=== PATIENT | female | born 1995 | race Caucasian/White ===

== ENCOUNTER 2018-12-17 01:07 | Observation (INO) | payer MEDICAID ==
[~2018-12-17] VITALS: Ht 170.2 cm; Wt 55.0 kg
[2018-12-17] MEDS ORDERED: PRENAVITE1 TAB (01:16)
[2018-12-17] MEDS ORDERED: TUMS X-STR300 MG (01:16)
[2018-12-17 01:44] LABS: HEMATOCRIT 33.4 % (36.0-48.0); HEMOGLOBIN 12.2 g/dL (12-16); LYMPHOCYTES 19.6 % (15-50); MCH 34.7 pg (26.0-34.0); MCHC 36.5 g/dL (31.0-37.0); MCV 94.9 fL (80.0-100.0); MEAN PLATELET VOLUME 9.8 fL (7.4-10.4); NEUTROPHILS 73.4 % (40-80); PLATELET COUNT 149 10x3/uL (130-400); RBC 3.52 10x6/uL (4.00-5.40); RDW 12.2 % (11.5-14.5); WBC 13.6 10x3/uL (4.8-10.8)
[2018-12-17 01:57] LABS: HCG SERUM POSITIVE (NEGATIVE)
--- NOTE | 2018-12-17 01:57 | NUR ---
BRYN MCNAMARA PERFORMED PELVIC EXAM ON PT. ELIZABETH ZIMMERMAN AND PT SPOUSE AT PT BEDSIDE. PT TOLERATED EXAM WELL. BLOOD CLOTS NOTED.
[2018-12-17 01:59] LABS: APPEARANCE CLOUDY (CLEAR); BACTERIA NONE SEEN /hpf (NONE SEEN); BILIRUBIN NEGATIVE (NEGATIVE); COLOR PINK (YELLOW); EPITHELIAL CELLS NSEEN /hpf (0-5); GLUCOSE NEGATIVE (NEGATIVE); KETONE NEGATIVE (NEGATIVE); NITRITE NEGATIVE (NEGATIVE); PROTEIN TRACE mg/dL (NEGATIVE); RED CELLS - URINE >50 /hpf (0-5); UROBILINOGEN NORMAL (NORMAL); WHITE CELLS - URINE NSEEN /hpf (0-5)
[2018-12-17 02:05] LABS: ALBUMIN 3.6 g/dL (3.4-5.0); ALKALINE PHOSPHATASE 59 U/L (46-116); ALT (SGPT) 17 U/L (10-68); BILIRUBIN - TOTAL 1.56 mg/dL (0.2-1.3); CALC OSMOLALITY 279 mosm/kg (275-300); CALCIUM 8.5 mg/dL (8.5-10.1); CARBON DIOXIDE 25.9 mmol/L (21.0-32.0); CHLORIDE - SERUM 103 mmol/L (98-107); CREATININE - SERUM 0.7 mg/dL (0.6-1.3); GLUCOSE 116 mg/dL (74-106); POTASSIUM - SERUM 3.6 mmol/L (3.5-5.1); PROTEIN - SERUM 6.7 g/dL (6.4-8.2); SODIUM 140 mmol/L (136-145); UREA NITROGEN 12 mg/dL (7-18); eGFR NON AFRICAN AMERICAN > 90 mL/min (90-120)
--- NOTE | 2018-12-17 02:32 | NUR ---
PT C/O INCREASE IN LOWER ABD PAIN. PT REPORTS PAIN IS CRAMPING AND SHARP IN SENSATION. EDP ANDERS NOTIFIED.
--- NOTE | 2018-12-17 03:11 | NUR ---
PT REPORTS DECREASE IN PAIN AFTER RECEIVING IV FENTANYL ORDERED. PT FAMILY AT BEDSIDE.
--- NOTE | 2018-12-17 03:47 | NUR ---
PT LEFT ED VIA WC FOR US.
--- NOTE | 2018-12-17 04:30 | NUR ---
PT RETURNED FROM US VIA .
--- NOTE | 2018-12-17 05:04 | NUR ---
PT RATES PAIN 5/10 AT THIS TIME. EDP NOTIFIED.
--- NOTE | 2018-12-17 05:22 | NUR ---
DR CHU AT PT BEDSIDE.
--- NOTE | 2018-12-17 06:02 | NUR ---
PT REC'D TO LABOR AND DELIVERY VIA WHEELCHAIR FROM ER. PT TO BED. VSS. LUNGS CLEAR. BS+. SALINE LOCK TO THE RT AC. SITE CLEAR. PATIENT COMPLAINS OF PAIN AT 1-2 INITIALLY BUT DURING ASSESSMENT STATES THAT POAIN INCREASES TO 3. MODERATE VAGINAL BLEEDING NOTED AT THIS TIME. PT ORIENTED TO ROOM AND CALL LIGHT. S/O AT BEDSIDE AND SUPPORTIVE. NO ACUTE DISTRESS NOTED AT THIS TIME. SIDERAILS UP FOR SAFETY X2. CALL LIGHT IN PT REACH. Len BAH RN
[2018-12-17 06:32] VITALS: BP 114/60; Ht 170.2 cm; Wt 55.0 kg
--- NOTE | 2018-12-17 07:13 | NUR ---
ASSUME CARE OF THIS PATIENT. LAYING IN BED. ALERT AND ORIENTED. NO ACUTE DISTRESS NOTED. SOME LOWER ABD CRAMPING 3-4/10. ASKED ABOUT USING AN ICE PACK. CURRENTLY NO ORDERS. SIDERAILS UP X 2, CALL LIGHT IN REACH.
--- NOTE | 2018-12-17 07:15 | NUR ---
DR CHU CALLED L&D AND ASKED IF PATIENT HAD BEEN ADMITTED TO L&D. INFORMED MD THAT PATIENT IS HERE. HE ASKED IF SHE DECIDED WHAT SHE WANTS TO DO. WILL CALL MD BACK AFTER ASKING PATIENT.
--- NOTE | 2018-12-17 07:25 | NUR ---
PATIENT SAYS HER PAIN IS 3-4/10. INFORMED PATIENT THAT DR CHU WOULD LIKE TO KNOW WHAT SHE HAS DECIDED TO DO. SHE VERBALIZED WHAT HE DISCUSSED WITH HER INCLUDING SURGERY TO LOOK OR POSSIBLE REMOVE TUBE OR METHYLTREXATE. STATES "RIGHT NOW I JUST WANT TO KNOW WHAT'S GOING ON" ASKED PATIENT IF THAT MEANS SHE WANTS HIM TO DO THE LAPAROSCOPY TO LOOK. SHE SAID YES. DR CHU NOTIFIED. ORDERS RECEIVED TO CONSENT PATIENT AND START NS. MD WANTS TO CONTINUE TO MONITOR PAIN, NO PAIN MEDS ORDERED. PT HAS BEEN NPO SINCE APPROX 1400 YESTERDAY. BLOOD TYPE 0+, INFORMED.
--- NOTE | 2018-12-17 07:32 | NUR ---
NUCLEAR MEDICINE SUPERVISOR NOTIFIED THAT MD PLANS LAPAROSCOPY FOR THIS PATIENT. CURRENTLY ANESTHESIA IN OR AND WILL BE AVAILABLE AFTER 0930 CLOSE TO 1000.
--- NOTE | 2018-12-17 07:35 | NUR ---
DR CHU NOTIFIED OF SITUATION IN OR. INFORMED IF HE WANTS TO DO NOW THEN SECOND PROVIDER WILL BE CALLED IN OR HE HAS OPTION TO DO AT 1000. SAYS 1000 IS OK. ROCK WOOL INSULATOR NOTIFIED.
--- NOTE | 2018-12-17 07:45 | NUR ---
CONSENTS OBTAINED FROM PATIENT FOR SURGERY, ANESTHESIA AND BLOOD TRANSFUSION AFTER DISCUSSING PURPOSE OF EACH CONSENT. NO DISTRESS NOTED. SMILING, PERIODS OF LAUGHTER. VISITOR SLEEPING ON COUCH. PT UP TO BATHROOM TO CHANGE OUT OF CLOTHES. SMALL EARRING REMOVED, PLACED IN STERILE CUP AND PLACED IN PT CLOTHING BAG. CLEAN MONICA-PAD ON. SMALL VAGINAL BLEEDING.
[2018-12-17 07:47] VITALS: BP 101/57
--- NOTE | 2018-12-17 07:47 | NUR ---
SHIFT ASSESSMENT COMPLETED. SMOKER, LAST ATE APPROX 1400 YESTERDAY, TAKES PNV, TYLENOL AND CHEWABLE TUMS PRN AT HOME. NO ACUTE DISTRESS NOTED. ENCOURAGED TO REST QUIETLY, INFORMED THAT SURGERY WILL BE AT APPROX 1000 THIS MORNING. CALL LIGHT IN REACH. TO CALL IF ANYTHING IS NEEDED. EXPLAINED TO PT WHY MD HAS NOT ORDERED FURTHER PAIN MEDICATION. STATES "I GUESS I WILL BE AWAKE ALL MORNING". NPO.
--- NOTE | 2018-12-17 09:01 | NUR ---
UP TO BATHROOM TO VOID. STATES "THERE WAS HARDLY ANY BLEEDING ON THAT PAD". 3-/10 LOW ABD PAIN, RETURNED TO BED WITHOUT DIFFICULTY. NO ACUTE DISTRESS NOTED, OCCASIONAL GRIMACING. VERBAL AND WRITTEN INFORMATION WAS GIVEN TO PT AND FOB ON LAPAROSCOPY AND ECTOPIC . LIGHTS TURNED ON LOW, SIDERAILS UP X2, CALL LIGHT IN REACH.
--- NOTE | 2018-12-17 09:10 | NUR ---
Nik SIBLEY, VIKTORIYA CALLED FLOOR AND SAID HE PUT PRE-OP ORDERS IN. SAYS PT MAY HAVE SCOPALAMINE PATCH IF SHE DESIRES.
--- NOTE | 2018-12-17 09:19 | NUR ---
DISCUSSED SCOPOLAMINE PATCH WITH PATIENT. DESIRES TO RECEIVE. PHARMACY NOTIFIED WILL NEED NOW FOR PRE-OP.
--- NOTE | 2018-12-17 09:26 | NUR ---
SCOLPOLAMINE PATCH PLACED ON HAIRLESS AREA BEHIND LEFT EAR.
--- NOTE | 2018-12-17 09:40 | NUR ---
DR CHU VISITED PT. DID HAND-HELP US. TALKED WITH PATIENT REGARDING LAP EXAM AND POSSIBLE PROCEDURES. FOB IN ROOM. NO SPECIFIC QUESTIONS ASKED. WAITING ON OR TO CALL FOR PRE-OP MEDS.
--- NOTE | 2018-12-17 09:54 | NUR ---
PRE-OP MEDS GIVEN ORDERED. PRE-OP CHECK-OFF SHEET COMPLETED. SCD'S IN PLACE, LR HUNG AND PLACED ON ALARIS PUMP AT 125 ML/HR. FOB IN ROOM, PT BECAME SLIGHTLY TEARFUL. SIDE RAILS UP, CALL LIGHT IN REACH. CONSENTS ON CHART.
--- NOTE | 2018-12-17 10:00 | NUR ---
UP TO VOID. SURGERY ENROUTE TO PICK PT UP.
--- NOTE | 2018-12-17 10:11 | NUR ---
OR HERE TO TAKE PATIENT UP STAIRS FOR SURGERY VIA BED. DR CHU AWARE.
[2018-12-17 12:04] VITALS: BP 110/57
--- NOTE | 2018-12-17 12:04 | NUR ---
RECEIVED PATIENT FROM RECOVERY TO ROOM 1273. DROWSY, AROUSES AND ORIENTED TO PLACE. SPEECH SLIGHTLY SLURRED. O2 ON PER NC AT 2 L. ADEN DRAINING CLEAR YELLOW URINE, IV LR INFUSING INTO RIGHT AC, NO EVIDENCE OF INFILTRATION. PLACED ON ALARIS PUMP AT 125 ML/HR. LUNGS CLEAR BILATERALLY, NO VAGINAL BLEEDING NOTED, CLEAN MONICA-PADS X 2 PLACED, THREE BANDAIDS NOTED ON ABDOMEN- ONE AT UMBILICUS AND TWO BILATERAL LOW LATERAL ABDOMEN. CLEAN AND DRY. SCD'S IN PLACE AND PLACED ON PUMP, WORKING BILATERALLY. EXPLAINED TO PATIENT PLAN OF CARE AND ANTICIPATE DC HOME THIS AFTERNOON. VERBALIZED UNDERSTANDING AND CLOSED EYES. SIDE RAILS UP X 2, CALL LIGHT IN REACH. FOB AT BEDSIDE.
--- NOTE | 2018-12-17 12:15 | NUR ---
O2 SATS AT 100%, O2 DECREASED TO 1L PER NC. AROUSES EASILY. ICE CHIPS GIVEN, CLEAR LIQUID DIET AT BEDSIDE, ENCOURAGED SIPS OF WATER AND WAITING UNTIL MORE AWAKE BEFORE TRYING LIQUIDS.
--- NOTE | 2018-12-17 12:30 | NUR ---
O2 SATS AT 100%. O2 OFF. ADEN DC'D WITH 150 ML CLEAR URINE IN BAG. NO VAGINAL BLEEDING NOTED. AROUSES FROM SLEEP EASILY. SIDE RAILS UP X 2, CALL LIGHT IN REACH, INSTRUCTED NOT TO TRY TO GET OOB TO VOID WITHOUT ASSISTANCE FROM RN. VERBALIZED UNDERSTANDING.
--- NOTE | 2018-12-17 12:45 | NUR ---
MARIANA, PHARMACIST TO L&D AND INFORMED STAFF THAT METHALTREXATE WILL NEED TO BE GIVEN BY CHEMO CERTIFIED NURSE. NARCOTICS DETECTIVE NOTIFIED.
--- NOTE | 2018-12-17 12:54 | NUR ---
CURRENTLY NO CHEMO CERTIFIED NURSES IN HOUSE. PATTERN DATA OPERATOR IS CURRENTLY LOOKING TO SEE IF ANYONE IS AVAILABLE TO COME IN .
--- NOTE | 2018-12-17 13:08 | NUR ---
AWAKE SITTING UP IN BED. ACTIVE BS X 4. HAS EATEN ICE CHIPS AND NOW TRYING JELLO WITHOUT NAUSEA. 4/10 INCISIONAL ACHING, ICE PACK GIVEN. HAD DEMEROL IN RECOVERY ROOM WILL CHECK ON NEXT PAIN MEDICATION. FOB HAS PT RX FOR NORCO AND PLANS TO FILL AT PHARMACY. PT AND FOB PLAN TRIP TO [place] TO SEE HER FATHER. EARLIER DR CHU SAID THIS WOULD BE OK BUT NEED TO HAVE ACCESS TO OB CARE THERE IN CASE OF EMERGENCY AND NEEDS TO BE BACK TUESDAY FOR F/U BLOOD WORK. VERBALIZED UNDERSTANDING.
--- NOTE | 2018-12-17 13:20 | NUR ---
ALERT AND ORIENTED, ASSISTED UP TO BATHROOM TO VOID. VOIDED 300 ML URINE WITH LOCHIA BLOOD NOTED. SMALL AMOUNT ON PAD. ASSISTED PT WITH CLEANING UP BUTTOCKS AND PERINEAL AREA. CLEAN PERIPANTS ON WITH CLEAR MONICA-PAD. AMBULATED BACK TO BED. TOLERATED WELL. COMMUNITY RELATIONS REPRESENTATIVE ON FLOOR, SAYS THERE WILL BE A CHEMO CERTIFIED NURSE AVAILABLE AT [address] CHU WHO CALLED BACK IMMEDIATELY, EXPLAINED TO MD THAT METHYLTREXATE IS CHEMO DRUG AND ONLY CHEMO CERTIFIED RN CAN GIVE PER PHARMACIST AND THAT COMMUNITY RELATIONS REPRESENTATIVE SAYS SOMEONE WILL BE AVAILABLE TO GIVE AT [address]. DR CHU WANTS TO KNOW HOW HE CAN GET THIS GIVEN. COMMUNITY RELATIONS REPRESENTATIVE NOTIFIED AND GIVEN MD CELL PHONE NUMBER SO THAT SHE CAN TALK TO HIM DIRECTLY.
--- NOTE | 2018-12-17 13:43 | NUR ---
NORCO 10 MG GIVEN PO FOR 4/10 INCISIONAL ACHING AFTER DISCUSSING MEDICATION AND POTENTIAL FOR CAUSING DROWSINESS. PT WILL BE GOING HOME ON NORCO FOR PAIN MANAGEMENT. DR CHU WILL BE COMING IN TO GIVE IM METHYLTREXATE HIMSELF. PHARMACY CURRENTLY PREPARING MEDICATION. SIDERAILS UP X 2, CALL LIGHT IN REACH. DESIRES TO TRY TO EAT REGULAR FOOD. SANDWICH TRAY AND PUDDING GIVEN.
--- NOTE | 2018-12-17 13:50 | NUR ---
UP TO BATHROOM TO VOID. DR CHU IN ROOM TO GIVE METHYLTREXATE. VOIDED 300 ML PINK TINGED URINE. RETURNED TO BED WITHOUT DIFFICULTY.
--- NOTE | 2018-12-17 14:00 | NUR ---
METHOTREXATE 75 MG GIVEN IM PER DR CHU TO LEFT DORSOGLUTEAL. BANDAID TO SITE. SYRINGE, GLOVES, AND NEEDLE PLACED IN CHEMO BAG AND TAKEN TO PHARMACY FOR DISPOSAL.
--- NOTE | 2018-12-17 14:10 | NUR ---
IV FLUIDS DC'D.
--- NOTE | 2018-12-17 14:12 | NUR ---
MD NGO L&D. RECEIVED ORDERS TO DC HOME IN ONE HOUR. F/U SCHEDULED ON TUESDAY.
[2018-12-17] MEDS ORDERED: HYDROCODON-ACE1 EAC7 PO (14:25)
--- NOTE | 2018-12-17 15:00 | NUR ---
AROUSED FROM SLEEP EASILY. ASKED PT IF SHE WAS READY TO GO HOME OR GIVEN OPTION TO CONTINUE NAPPING. DESIRES TO GO HOME. SALINE LOCK DC'D WITH TIP INTACT. UP TO BATHROOM TO VOID AND GET DRESS.
--- NOTE | 2018-12-17 15:10 | NUR ---
VOIDED 300 ML, DRESSED AND RETURNED TO BED. DC TEACHING COMPLETED TO INCLUDE S&S INFECTION, WOUND CARE, MEDICATION ADMINISTRATION AND FOLLOW-UP. VERBALIZED UNDERSTANDING. INSTRUCTED AGAIN THAT MD SAYS NO MOTRIN/IBUPROFEN/NSAIDS. TO KEEP F/U SCHEDULED ON TUESDAY. HAS DC INSTRUCTIONS AND WRITTEN PRESCRIPTION FOR NORCO 5 MG. NO SPECIFIC QUESTIONS ASKED AT THIS TIME. SAYS HER PAIN IS ACHING 1-2/10.
--- NOTE | 2018-12-17 15:15 | NUR ---
DC'D VIA WHEELCHAIR TO CAR. ALL PERSONAL BELONGINGS REMOVED FROM ROOM. REMINDED TO TAKE OFF SCOPOLAMINE PATCH TOMORROW AT 0930. VERBALIZED UNDERSTANDING. IS DRIVING HOME.
== END 2018-12-17 15:15 | disposition home or self-care (01) ==
LOC: D.ER 01:07 → D.LD 05:34 → OBSVTIME 05:34 → D.LD 15:15
PROVIDERS: Emergency Medicine; ADMIT Obstetrics & Gynecology; ATTEND Obstetrics & Gynecology
DX: O02.81 Inappropriate change in quantitative human chorionic gonadotropin (hCG) in early pregnancy (principal); O34.81 Maternal care for other abnormalities of pelvic organs, first trimester; N83.202 Unspecified ovarian cyst, left side; Z3A.01 Less than 8 weeks gestation of pregnancy